=== PATIENT | female | born 1970 | race Two or more races ===

== ENCOUNTER 2017-03-10 17:12 | Emergency (ER) | payer OTHER, MEDICAID ==
[~2017-03-10] VITALS: Ht 142.2 cm; Wt 43.1 kg
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
[2017-03-10] MEDS ORDERED: HYDROCODONE/APAP 5/325MG 1 EACH TABLET ONE (17:34)
[2017-03-10] MEDS ORDERED: IBUPROFEN 600 MG TABLET PO ONE ×2 (17:35→18:00)
--- NOTE | 2017-03-10 17:50 | NUR ---
PT MEDICATED ORDERED.
[2017-03-10] MEDS ORDERED: HYDROCODONE/APAP 5/325MG 1 EACH TABLET PO ONE (18:00)
--- NOTE | 2017-03-10 18:20 | NUR ---
PT TAKEN TO CT.
--- NOTE | 2017-03-10 19:00 | NUR ---
RECEIVED REPORT FROM RASHEL NICHOLS FOR GUS.
--- NOTE | 2017-03-10 19:23 | NUR ---
PT TO CT.
--- NOTE | 2017-03-10 19:27 | NUR ---
PT RETURNED FROM CT.
--- NOTE | 2017-03-10 20:15 | NUR ---
DR. HASKINS SPOKE TO PT REGARDING RESULTS
--- NOTE | 2017-03-10 20:20 | NUR ---
Patient discharged to home in stable condition. Written and verbal after care instructions given. Patient verbalizes understanding of instruction. ambulatory with a steady gait. instructed not to drive. pt verbalize understanding.
[2017-03-10 20:21] VITALS: BP 136/67
== END 2017-03-10 20:22 | disposition home or self-care (01) ==
LOC: ER 17:13
DX: S16.1XXA Strain of muscle, fascia and tendon at neck level, initial encounter (principal); S83.91XA Sprain of unspecified site of right knee, initial encounter; R51 Headache; V43.62XA Car passenger injured in collision with other type car in traffic accident, initial encounter; Y93.89 Activity, other specified; Y92.488 Other paved roadways as the place of occurrence of the external cause; Y99.8 Other external cause status
CPT/HCPCS: 70450; 71100; 72125; 73564; 73700; 93005; 99284; A4606; L0172; Z7610